=== PATIENT | male | born 1950 | race Two or more races ===

== ENCOUNTER 2019-07-12 14:57 | Outpatient (CLI) | payer MEDICARE, OTHER ==
[2019-07-12 16:15] LABS: BASOPHILS # (AUTO) 0.1 /CMM (0.0-0.2); BASOPHILS % (AUTO) 0.7 % (0.0-2.0); EOSINOPHILS % (AUTO) 2.1 % (0.0-6.0); HEMATOCRIT 28 % (39-51); HEMOGLOBIN 9.4 g/dL (13.5-17.5); LYMPHOCYTES # (AUTO) 1.3 /CMM (0.8-4.8); MEAN CORPUSCULAR HGB CONC 33 g/dl (31.0-36.0); MEAN CORPUSCULAR VOLUME 89 fL (80-96); MONOCYTES # (AUTO) 0.5 /CMM (0.1-1.30); MONOCYTES % (AUTO) 5.1 % (2.0-12.0); NEUTROPHILS # (AUTO) 7.7 /CMM (1.8-8.9); NEUTROPHILS % (AUTO) 79.1 % (43.0-81.0); PLATELET COUNT (AUTO) 362 /CMM (150-450); RED BLOOD CELL COUNT(AUTO) 3.21 MIL/uL (4.5-6.0); WHITE BLOOD COUNT (AUTO) 9.8 K/uL (4.3-11.0)
[2019-07-12 16:33] LABS: ALBUMIN 3.1 g/dL (3.4-5.0); BILIRUBIN,TOTAL 0.4 mg/dL (0.2-1.0); CALCIUM, SERUM 8.8 mg/dL (8.5-10.1); POTASSIUM 3.6 mmol/L (3.5-5.1); THYROID STIMULATING HORMONE 1.21 uIU/mL (0.358-3.74); TOTAL PROTEIN, SERUM 7.1 g/dL (6.4-8.2)
== END 2019-07-12 23:59 | disposition home or self-care (01) ==
LOC: RAD 14:57
PROVIDERS: ATTEND Internal Medicine Interventional Cardiology
DX: I11.0 Hypertensive heart disease with heart failure (principal); R53.83 Other fatigue; R09.89 Other specified symptoms and signs involving the circulatory and respiratory systems; J90 Pleural effusion, not elsewhere classified
CPT/HCPCS: 36415; 71046; 80053-TC; 83880; 84443-TC; 85025-TC

== ENCOUNTER 2019-07-20 11:05 | Outpatient (CLI) | payer MEDICARE, OTHER | END 2019-07-20 23:59 | disposition home or self-care (01) | LOC: CT 11:05 | PROVIDERS: ATTEND Internal Medicine Interventional Cardiology | DX: I82.402 Acute embolism and thrombosis of unspecified deep veins of left lower extremity (principal); R06.00 Dyspnea, unspecified; I51.7 Cardiomegaly; Z95.1 Presence of aortocoronary bypass graft; I70.0 Atherosclerosis of aorta; I25.10 Atherosclerotic heart disease of native coronary artery without angina pectoris; J90 Pleural effusion, not elsewhere classified; J98.11 Atelectasis; M47.814 Spondylosis without myelopathy or radiculopathy, thoracic region; R60.1 Generalized edema | CPT/HCPCS: 71250-TC; 93971-TC ==

== ENCOUNTER 2022-02-01 10:41 | Outpatient (CLI) | payer MEDICARE, OTHER ==
[2022-02-01 11:30] LABS: CALCIUM, SERUM 9.1 mg/dL (8.5-10.1); CREATININE 1.1 mg/dL (0.6-1.3); POTASSIUM 4.2 mmol/L (3.5-5.1)
== END 2022-02-01 23:59 | disposition home or self-care (01) ==
LOC: LAB 10:41
PROVIDERS: ATTEND Internal Medicine Interventional Cardiology
DX: R07.89 Other chest pain (principal)
CPT/HCPCS: 36415; 80048-TC; 84484-TC